=== PATIENT | female | born 1980 | race Caucasian/White ===

== ENCOUNTER → 2017-09-05 | Outpatient (CLI) | payer OTHER ==
[~2017-09-05] MED LIST: B-COMPLEX-VITA1 EACH PO; CEFTIN500 MG PO; CELEBREX200 MG; CELEBREX200 MG PO; CITALOPRAM HBR20 MG PO; COMPAZINE10 MG PO; DECADRON2 MG PO; DEXAMETHASONE1 MG PO; DILAUDID2 MG PO; GABAPENTIN300 MG PO; GABAPENTIN600 MG PO; NEURONTIN300 MG PO; OLANZAPINE5 MG PO; PEPCID20 MG PO; PHENERGAN25 MG PR; PROMETHAZINE HC25 M1 PO; PROZAC20 MG PO; TOPAMAX50 MG PO; ZANTAC300 MG PO; ZOFRAN4 MG PO; ZOFRAN8 MG PO; ZYRTEC10 M2 PO; ZYRTEC10 M3 PO
== END | disposition home or self-care (01) ==
LOC: PICC 14:00
DX: C50.912 Malignant neoplasm of unspecified site of left female breast (principal); Z88.1 Allergy status to other antibiotic agents; Z88.2 Allergy status to sulfonamides; Z88.8 Allergy status to other drugs, medicaments and biological substances; Z91.040 Latex allergy status
CPT/HCPCS: 76937

== ENCOUNTER 2017-09-10 20:20 | Inpatient (IN) | payer OTHER ==
[~2017-09-10] VITALS: Ht 170.2 cm; Wt 57.3 kg
[~2017-09-10 20:20] MED LIST changes: -B-COMPLEX-VITA1 EACH PO; -CEFTIN500 MG PO; -CELEBREX200 MG PO; -DECADRON2 MG PO; -DEXAMETHASONE1 MG PO; -OLANZAPINE5 MG PO; -ZOFRAN4 MG PO; -ZOFRAN8 MG PO
[2017-09-10 21:20] LABS: HEMATOCRIT 35.8 % (36.0-46.0); HEMOGLOBIN 11.8 G/DL (11.9-15.5); MCH 29.1 PG (29.0-34.0); MCV 88.4 FL (83-99); RBC DIS.WIDTH-CV 12.6 % (11.8-14.6); RBC DIS.WIDTH-SD 40.8 % (39-53); RED BLOOD COUNT 4.05 M/uL (3.80-5.20)
[2017-09-10 21:21] LABS: PLATELET COUNT 137 K/uL (156-360)
[2017-09-10 21:34] LABS: CHLORIDE 101 mEq/L (99-109); POTASSIUM 3.8 mEq/L (3.7-5.4); SODIUM 137 mEq/L (136-147)
[2017-09-10 21:36] LABS: GLUCOSE 106 mg/dL (70-99)
[2017-09-10 21:39] LABS: CREATININE 0.7 mg/dL (0.6-1.3); GFR ESTIMATE (CALCULATED) > 59 mL/min/
[2017-09-10 21:40] LABS: UREA NITROGEN (BUN) 17 mg/dL (9-23)
[2017-09-10 21:42] LABS: TROP-I INTERPRETATION NEGATIVE; TROPONIN-I < 0.01 ng/mL (0.0-0.30)
[2017-09-11] VITALS (7 sets, daily range): BP systolic 117–136; BP diastolic 69–97
[2017-09-11 01:48] LABS: APPEARANCE SL.HAZY ((CLEAR)); BILIRUBIN NEGATIVE; BLOOD SMALL; COLOR YELLOW ((YELLOW)); GLUCOSE (STRIP) NEGATIVE; KETONES 80; LEUKOCYTES SMALL; NITRITE POSITIVE; PROTEIN (STRIP) NEGATIVE; SPECIFIC GRAVITY 1.015 (1.000-1.030); UROBILINOGEN 0.2 MG/DL (0.2-1.0)
[2017-09-11 01:52] LABS: BACTERIA 3+ /HPF; EPITHELIAL CELLS 1+ /HPF; MUCUS 2+ /LPF; RED BLOOD CELLS 0-5 /HPF (0-5); UCUL ADDED? YES; WHITE BLOOD CELLS 30-40 /HPF (0-5)
[2017-09-11] MEDS ORDERED: CELEBREX200 MG PO (03:03)
[2017-09-11] MEDS ORDERED: TOPAMAX50 MG PO (03:04)
[2017-09-11] MEDS ORDERED: B-COMPLEX-VITA1 EACH PO (03:04)
[2017-09-11 06:51] LABS: HEMATOCRIT 31.2 % (36.0-46.0); HEMOGLOBIN 10.1 G/DL (11.9-15.5); MCH 28.7 PG (29.0-34.0); MCHC 32.4 G/DL (30.0-36.0); MCV 88.6 FL (83-99); PLATELET COUNT 104 K/uL (156-360); RBC DIS.WIDTH-CV 12.7 % (11.8-14.6); RBC DIS.WIDTH-SD 41.1 % (39-53); RED BLOOD COUNT 3.52 M/uL (3.80-5.20); WHITE BLOOD COUNT 15.6 K/uL (4.1-10.2)
[2017-09-11 08:49] LABS: CHLORIDE 106 MEQ/L (99-109); CREATININE 0.5 MG/DL (0.6-1.3); GFR ESTIMATE (CALCULATED) > 59 mL/min/; GLUCOSE 96 mg/dL (70-99); POTASSIUM 3.3 MEQ/L (3.7-5.4); SODIUM 140 MEQ/L (136-147); UREA NITROGEN (BUN) 14 mg/dL (9-23)
[2017-09-12 08:11] VITALS: BP 114/78
[2017-09-12 08:51] LABS: HEMATOCRIT 31.2 % (36.0-46.0); MCH 28.6 PG (29.0-34.0); MCHC 32.1 G/DL (30.0-36.0); MCV 89.1 FL (83-99); PLATELET COUNT 76 K/uL (156-360); RBC DIS.WIDTH-CV 12.5 % (11.8-14.6); RBC DIS.WIDTH-SD 41.1 % (39-53); WHITE BLOOD COUNT 4.9 K/uL (4.1-10.2)
[2017-09-12 09:20] LABS: CHLORIDE 109 MEQ/L (99-109); MAGNESIUM 1.8 mg/dl (1.3-2.7); POTASSIUM 3.6 MEQ/L (3.7-5.4); SODIUM 141 MEQ/L (136-147)
[2017-09-12 09:26] LABS: CREATININE 0.5 MG/DL (0.6-1.3); GFR ESTIMATE (CALCULATED) > 59 mL/min/; GLUCOSE 84 mg/dL (70-99); UREA NITROGEN (BUN) 10 mg/dL (9-23)
[2017-09-12 09:28] LABS: ABS NEUTROPHIL COUNT 4.3; BAND NEUTROPHILS 3.5 % (0-8.0); EOSINOPHIL ABS CT 0.1; EOSINOPHILS 1.8 % (0-5.0); LYMPHOCYTES 10.5 % (15.0-45.0); PLAT.SUFFICIENCY DECREASED; SEG.NEUTROPHILS 84.2 % (46.0-76.0)
[2017-09-12] MEDS ORDERED: COMPAZINE10 MG PO (10:16)
[2017-09-12] MEDS ORDERED: ZOFRAN8 MG PO (10:17)
[2017-09-12 12:05] VITALS: BP 154/81
[2017-09-12 12:12] VITALS: BP 105/52
[2017-09-12] MEDS ORDERED: ZOFRAN4 MG PO (12:29)
[2017-09-12 16:24] VITALS: BP 131/80
[2017-09-12 20:30] VITALS: BP 123/79
[2017-09-12 23:56] VITALS: BP 133/85
[2017-09-13 04:00] VITALS: BP 128/69
[2017-09-13 11:25] VITALS: BP 118/78
[2017-09-13 15:20] VITALS: BP 119/77
[2017-09-13] MEDS ORDERED: CEFTIN500 MG PO (15:31)
[2017-09-13] MEDS ORDERED: DEXAMETHASONE1 MG PO (15:34)
== END 2017-09-13 17:50 | disposition home health service (06) | DRG 391 ==
LOC: EME 20:20 → EDOF 09-11 02:39 → ENRESERV 09-11 02:40 → 5WEST 09-11 03:52 → CANRESERV 09-11 13:49 → 5WEST 09-11 13:49 → ENRESERV 09-11 13:49 → 5WEST 09-11 13:49
PROVIDERS: Emergency Medicine; Hospitalist; Internal Medicine; Student in an Organized Health Care Education/Training Program
DX: R11.2 Nausea with vomiting, unspecified (principal); K52.1 Toxic gastroenteritis and colitis; T45.1X5A Adverse effect of antineoplastic and immunosuppressive drugs, initial encounter; E86.0 Dehydration; E87.6 Hypokalemia; N39.0 Urinary tract infection, site not specified; C50.912 Malignant neoplasm of unspecified site of left female breast; D64.81 Anemia due to antineoplastic chemotherapy; D69.59 Other secondary thrombocytopenia; G93.5 Compression of brain; Q85.02 Neurofibromatosis, type 2; H91.90 Unspecified hearing loss, unspecified ear; D32.9 Benign neoplasm of meninges, unspecified; G51.0 Bell's palsy; G50.0 Trigeminal neuralgia; Z17.1 Estrogen receptor negative status [ER-]; Z68.1 Body mass index [BMI] 19.9 or less, adult; Z80.1 Family history of malignant neoplasm of trachea, bronchus and lung; Z80.3 Family history of malignant neoplasm of breast; Z87.442 Personal history of urinary calculi
CPT/HCPCS: 70553; 71046; 74176; 80048; 81003; 83605; 83735; 84484; 85025; 85027; 87040; 87077; 87086; 87186; 99281; 99284; J0696; J0780; J1100; J1650; J2060; J2405; J3010; J3480; J7030; J7040

== ENCOUNTER 2017-12-09 04:43 | Emergency (ER) | payer OTHER ==
[~2017-12-09] VITALS: Ht 167.6 cm; Wt 53.2 kg
[~2017-12-09 04:43] MED LIST changes: +B-COMPLEX-VITA1 EACH PO; +CEFTIN500 MG PO; +CELEBREX200 MG PO; +DECADRON2 MG PO; +DEXAMETHASONE1 MG PO; +OLANZAPINE5 MG PO; +ZOFRAN4 MG PO; +ZOFRAN8 MG PO
[2017-12-09 05:48] LABS: HEMATOCRIT 31.8 % (36.0-46.0); HEMOGLOBIN 10.4 G/DL (11.9-15.5); MCH 31.3 PG (29.0-34.0); MCHC 32.7 G/DL (30.0-36.0); MCV 95.8 FL (83-99); PLATELET COUNT 178 K/uL (156-360); RBC DIS.WIDTH-CV 14.9 % (11.8-14.6); RBC DIS.WIDTH-SD 52.8 % (39-53); RED BLOOD COUNT 3.32 M/uL (3.80-5.20); WHITE BLOOD COUNT 4.5 K/uL (4.1-10.2)
[2017-12-09 06:08] LABS: ALBUMIN 3.4 g/dL (3.2-4.8); CHLORIDE 111 mEq/L (99-109); POTASSIUM 3.6 mEq/L (3.7-5.4); SODIUM 144 mEq/L (136-147); TROP-I INTERPRETATION NEGATIVE
[2017-12-09 06:10] LABS: GLUCOSE 103 mg/dL (70-99); TOTAL PROTEIN 5.6 g/dL (6.4-8.3)
[2017-12-09 06:12] LABS: TOTAL BILIRUBIN 0.4 mg/dL (0.0-1.0)
[2017-12-09 06:14] LABS: ALKALINE PHOSPHATASE 45 IU/L (3-129); CREATININE 0.7 mg/dL (0.6-1.3); GFR ESTIMATE (CALCULATED) > 59 mL/min/
[2017-12-09 06:15] LABS: UREA NITROGEN (BUN) 12 mg/dL (9-23)
[2017-12-09 06:16] LABS: AST (GOT) 12 IU/L (2-34)
[2017-12-09 06:17] LABS: ALT (GPT) 19 IU/L (3-49)
[2017-12-09] MEDS ORDERED: KEFLEX500 MG PO (11:40)
[2017-12-09] MEDS ORDERED: CEPHALEXIN250 MG/5 M PO (12:22)
[2017-12-09 12:40] VITALS: BP 112/86
== END 2017-12-09 12:42 | disposition home or self-care (01) ==
LOC: EME → EDBD 04:43 → EME 12:42
PROVIDERS: Emergency Medicine
DX: R27.0 Ataxia, unspecified (principal); Q85.02 Neurofibromatosis, type 2; R55 Syncope and collapse; R53.1 Weakness; J32.0 Chronic maxillary sinusitis; R29.6 Repeated falls; Z87.442 Personal history of urinary calculi; Z85.3 Personal history of malignant neoplasm of breast; Z91.040 Latex allergy status
CPT/HCPCS: 70450; 70553; 71045; 80053; 84484; 85027; 93005; 99281; 99285; J2405; J7030

== ENCOUNTER 2017-12-24 02:57 | Observation (INO) | payer OTHER ==
[~2017-12-24] VITALS: Ht 170.2 cm; Wt 56.2 kg
[~2017-12-24 02:57] MED LIST changes: +B-121000 MC2 PO; -B-COMPLEX-VITA1 EACH PO; +CEPHALEXIN250 MG/5 M PO; +KEFLEX500 MG PO
[2017-12-24 03:57] LABS: BASOPHIL (%) 0.2 % (0-1); EOSINOPHIL (%) 0.7 % (0-5); HEMATOCRIT 29.4 % (36.0-46.0); IMMATURE GRANULOCYTE (%) 1.7 % (0.0-0.7); LYMPHOCYTE (%) 10.3 % (15-42); LYMPHOCYTE COUNT 0.4 K/uL (1.0-2.8); MCH 31.5 PG (29.0-34.0); MCV 95.5 FL (83-99); MONOCYTE (%) 5.9 % (3-12); MONOCYTE COUNT 0.2 K/uL (0-0.8); NEUTROPHIL (%) 81.2 % (45-76); NEUTROPHIL COUNT 3.3 K/uL (1.8-6.4); PLATELET COUNT 216 K/uL (156-360); RBC DIS.WIDTH-CV 13.4 % (11.8-14.6); RED BLOOD COUNT 3.08 M/uL (3.80-5.20); WHITE BLOOD COUNT 4.1 K/uL (4.1-10.2)
[2017-12-24 03:58] LABS: HEMOGLOBIN 9.7 G/DL (11.9-15.5)
[2017-12-24 04:07] LABS: ALBUMIN 3.3 g/dL (3.2-4.8)
[2017-12-24 04:08] LABS: CHLORIDE 103 mEq/L (99-109); POTASSIUM 3.6 mEq/L (3.7-5.4); SODIUM 138 mEq/L (136-147)
[2017-12-24 04:10] LABS: GLUCOSE 98 mg/dL (70-99); TOTAL PROTEIN 5.4 g/dL (6.4-8.3)
[2017-12-24 04:12] LABS: TOTAL BILIRUBIN 0.5 mg/dL (0.0-1.0)
[2017-12-24 04:13] LABS: ALKALINE PHOSPHATASE 43 IU/L (3-129)
[2017-12-24 04:14] LABS: CREATININE 0.7 mg/dL (0.6-1.3); GFR ESTIMATE (CALCULATED) > 59 mL/min/
[2017-12-24 04:15] LABS: AST (GOT) 11 IU/L (2-34); DIRECT BILIRUBIN 0.2 mg/dL (0.0-0.3); UREA NITROGEN (BUN) 9 mg/dL (9-23)
[2017-12-24 04:17] LABS: ALT (GPT) 16 IU/L (3-49); LIPASE 3 U/L (1.0-51.0)
[2017-12-24 05:35] LABS: APPEARANCE CLEAR ((CLEAR)); BILIRUBIN NEGATIVE; BLOOD NEGATIVE; COLOR STRAW ((YELLOW)); GLUCOSE (STRIP) NEGATIVE; KETONES NEGATIVE; LEUKOCYTES NEGATIVE; NITRITE NEGATIVE; PROTEIN (STRIP) NEGATIVE; SPECIFIC GRAVITY 1.005 (1.000-1.030); UROBILINOGEN 0.2 MG/DL (0.2-1.0)
[2017-12-24 10:43] VITALS: BP 134/88
[2017-12-24 19:13] VITALS: BP 109/56
[2017-12-25 00:16] VITALS: BP 103/57
[2017-12-25 04:00] VITALS: BP 102/62
[2017-12-25 05:32] LABS: HEMATOCRIT 31.1 % (36.0-46.0); HEMOGLOBIN 9.9 G/DL (11.9-15.5); MCH 30.7 PG (29.0-34.0); MCHC 31.8 G/DL (30.0-36.0); MCV 96.3 FL (83-99); PLATELET COUNT 216 K/uL (156-360); RBC DIS.WIDTH-CV 13.5 % (11.8-14.6); RBC DIS.WIDTH-SD 47.9 % (39-53); RED BLOOD COUNT 3.23 M/uL (3.80-5.20); WHITE BLOOD COUNT 4.4 K/uL (4.1-10.2)
[2017-12-25 06:20] LABS: CHLORIDE 111 MEQ/L (99-109); CREATININE 0.6 MG/DL (0.6-1.3); GFR ESTIMATE (CALCULATED) > 59 mL/min/; GLUCOSE 87 mg/dL (70-99); POTASSIUM 3.5 MEQ/L (3.7-5.4); UREA NITROGEN (BUN) 6 mg/dL (9-23)
[2017-12-25 06:25] LABS: SODIUM 146 MEQ/L (136-147)
[2017-12-25 07:58] VITALS: BP 111/76
[2017-12-25] MEDS ORDERED: ZOFRAN4 MG PO (10:02)
[2017-12-25 10:55] VITALS: BP 107/70
[2017-12-27 14:56] LABS: STOOL OCCULT BLD 1ST SPECIMEN NEGATIVE
== END 2017-12-25 12:25 | disposition home or self-care (01) ==
LOC: EME → EDBD 02:57 → EDOF 08:07 → ENRESERV 08:08 → 4SOUTH 10:14
PROVIDERS: Hospitalist; Physician Assistant
DX: R55 Syncope and collapse (principal); E87.6 Hypokalemia; R11.2 Nausea with vomiting, unspecified; R10.9 Unspecified abdominal pain; Q85.02 Neurofibromatosis, type 2; C50.912 Malignant neoplasm of unspecified site of left female breast; E86.0 Dehydration; Z91.19 Patient's noncompliance with other medical treatment and regimen; Z92.21 Personal history of antineoplastic chemotherapy; Z87.891 Personal history of nicotine dependence; Z80.3 Family history of malignant neoplasm of breast; Z80.1 Family history of malignant neoplasm of trachea, bronchus and lung; Z88.1 Allergy status to other antibiotic agents; Z88.2 Allergy status to sulfonamides; Z91.048 Other nonmedicinal substance allergy status; Z91.040 Latex allergy status
CPT/HCPCS: 80048; 80076; 81003; 82272; 83690; 85025; 85027; 93005; 99281; 99285; G0378; J1644; J2405; J7030; S0028

== ENCOUNTER 2018-01-20 11:53 | Emergency (ER) | payer OTHER ==
[~2018-01-20] VITALS: Ht 170.2 cm; Wt 55.5 kg
[2018-01-20 14:14] LABS: BASOPHIL (%) 0.4 % (0-1); EOSINOPHIL (%) 0.4 % (0-5); HEMATOCRIT 39.8 % (36.0-46.0); HEMOGLOBIN 12.8 G/DL (11.9-15.5); IMMATURE GRANULOCYTE (%) 0.7 % (0.0-0.7); LYMPHOCYTE (%) 8.4 % (15-42); LYMPHOCYTE COUNT 0.5 K/uL (1.0-2.8); MCH 30.6 PG (29.0-34.0); MCHC 32.2 G/DL (30.0-36.0); MCV 95.2 FL (83-99); MONOCYTE (%) 4.7 % (3-12); MONOCYTE COUNT 0.3 K/uL (0-0.8); NEUTROPHIL (%) 85.4 % (45-76); NEUTROPHIL COUNT 4.6 K/uL (1.8-6.4); PLATELET COUNT 260 K/uL (156-360); RED BLOOD COUNT 4.18 M/uL (3.80-5.20); WHITE BLOOD COUNT 5.4 K/uL (4.1-10.2)
[2018-01-20 14:22] LABS: ALBUMIN 3.8 g/dL (3.2-4.8); CHLORIDE 107 mEq/L (99-109); SODIUM 143 mEq/L (136-147)
[2018-01-20 14:24] LABS: GLUCOSE 90 mg/dL (70-99); TOTAL PROTEIN 6.6 g/dL (6.4-8.3)
[2018-01-20 14:26] LABS: TOTAL BILIRUBIN 0.4 mg/dL (0.0-1.0)
[2018-01-20 14:28] LABS: ALKALINE PHOSPHATASE 51 IU/L (3-129); CREATININE 0.8 mg/dL (0.6-1.3); GFR ESTIMATE (CALCULATED) > 59 mL/min/
[2018-01-20 14:29] LABS: UREA NITROGEN (BUN) 11 mg/dL (9-23)
[2018-01-20 14:30] LABS: AST (GOT) 15 IU/L (2-34)
[2018-01-20 14:31] LABS: ALT (GPT) 29 IU/L (3-49)
[2018-01-20 14:33] LABS: TROP-I INTERPRETATION NEGATIVE; TROPONIN-I 0.03 ng/mL (0.0-0.30)
[2018-01-20 19:27] VITALS: BP 138/101
== END 2018-01-20 19:28 | disposition home or self-care (01) ==
LOC: EME → EDBD 11:53 → EME 11:53
PROVIDERS: Emergency Medicine
DX: R55 Syncope and collapse (principal); E86.0 Dehydration; R42 Dizziness and giddiness; R51 Headache; R06.00 Dyspnea, unspecified; Q85.02 Neurofibromatosis, type 2; H54.62 Unqualified visual loss, left eye, normal vision right eye; H91.90 Unspecified hearing loss, unspecified ear; Z85.3 Personal history of malignant neoplasm of breast; Z92.21 Personal history of antineoplastic chemotherapy
CPT/HCPCS: 70450; 71045; 80053; 84484; 85025; 93005; 99281; 99285; J2405; J7040

== ENCOUNTER 2018-02-02 05:10 | Emergency (ER) | payer OTHER ==
[~2018-02-02] VITALS: Ht 172.7 cm; Wt 69.1 kg
[2018-02-02 07:03] LABS: BASOPHIL (%) 0.5 % (0-1); EOSINOPHIL (%) 0.6 % (0-5); HEMATOCRIT 38.6 % (36.0-46.0); HEMOGLOBIN 12.6 G/DL (11.9-15.5); IMMATURE GRANULOCYTE (%) 0.9 % (0.0-0.7); LYMPHOCYTE (%) 10.7 % (15-42); LYMPHOCYTE COUNT 0.7 K/uL (1.0-2.8); MCH 30.3 PG (29.0-34.0); MCHC 32.6 G/DL (30.0-36.0); MCV 92.8 FL (83-99); MONOCYTE (%) 7.6 % (3-12); MONOCYTE COUNT 0.5 K/uL (0-0.8); NEUTROPHIL (%) 79.7 % (45-76); NEUTROPHIL COUNT 5.1 K/uL (1.8-6.4); PLATELET COUNT 229 K/uL (156-360); RBC DIS.WIDTH-SD 44.3 % (39-53); RED BLOOD COUNT 4.16 M/uL (3.80-5.20); WHITE BLOOD COUNT 6.4 K/uL (4.1-10.2)
[2018-02-02 07:49] LABS: ALBUMIN 3.6 G/DL (3.2-4.8); CHLORIDE 105 MEQ/L (99-109); POTASSIUM 3.5 MEQ/L (3.7-5.4); SODIUM 142 MEQ/L (136-147); TOTAL BILIRUBIN 0.3 MG/DL (0.0-1.0)
[2018-02-02 07:55] LABS: ALKALINE PHOSPHATASE 45 IU/L (3-129); ALT (GPT) 12 IU/L (3-49); AST (GOT) 11 IU/L (2-34); CREATININE 0.7 MG/DL (0.6-1.3); GFR ESTIMATE (CALCULATED) > 59 mL/min/; GLUCOSE 100 mg/dL (70-99); TOTAL PROTEIN 6.4 G/DL (6.4-8.3); UREA NITROGEN (BUN) 12 mg/dL (9-23)
[2018-02-02 09:40] VITALS: BP 128/95
== END 2018-02-02 09:55 | disposition home or self-care (01) ==
LOC: EME → EDBD 05:10 → EME 09:55
PROVIDERS: Emergency Medicine
DX: E86.0 Dehydration (principal); C50.911 Malignant neoplasm of unspecified site of right female breast; Q85.00 Neurofibromatosis, unspecified; Z92.21 Personal history of antineoplastic chemotherapy; Z87.442 Personal history of urinary calculi; Z91.040 Latex allergy status
CPT/HCPCS: 71045; 80053; 85025; J7030

== ENCOUNTER 2018-02-09 00:50 | Emergency (ER) | payer OTHER ==
[~2018-02-09] VITALS: Ht 167.6 cm; Wt 54.4 kg
[~2018-02-09 00:50] MED LIST changes: -B-121000 MC2 PO; +B-12500 MC1 SL
[2018-02-09 02:30] LABS: BASOPHIL (%) 0.2 % (0-1); EOSINOPHIL (%) 0.3 % (0-5); EOSINOPHIL COUNT 0.1 K/uL (0-0.3); HEMOGLOBIN 12.6 G/DL (11.9-15.5); IMMATURE GRANULOCYTE (%) 0.7 % (0.0-0.7); LYMPHOCYTE (%) 4.8 % (15-42); LYMPHOCYTE COUNT 0.7 K/uL (1.0-2.8); MCH 30.8 PG (29.0-34.0); MCHC 34.1 G/DL (30.0-36.0); MCV 90.5 FL (83-99); MONOCYTE (%) 7.6 % (3-12); MONOCYTE COUNT 1.2 K/uL (0-0.8); NEUTROPHIL (%) 86.4 % (45-76); NEUTROPHIL COUNT 13.2 K/uL (1.8-6.4); PLATELET COUNT 228 K/uL (156-360); RBC DIS.WIDTH-CV 12.8 % (11.8-14.6); RBC DIS.WIDTH-SD 42.7 % (39-53); RED BLOOD COUNT 4.09 M/uL (3.80-5.20); WHITE BLOOD COUNT 15.2 K/uL (4.1-10.2)
[2018-02-09 02:38] LABS: CHLORIDE 100 mEq/L (99-109); POTASSIUM 3.7 mEq/L (3.7-5.4); SODIUM 139 mEq/L (136-147)
[2018-02-09 02:40] LABS: GLUCOSE 114 mg/dL (70-99)
[2018-02-09 02:44] LABS: CREATININE 0.8 mg/dL (0.6-1.3); GFR ESTIMATE (CALCULATED) > 59 mL/min/
[2018-02-09 02:45] LABS: UREA NITROGEN (BUN) 15 mg/dL (9-23)
[2018-02-09 02:52] LABS: TROP-I INTERPRETATION NEGATIVE; TROPONIN-I < 0.01 ng/mL (0.0-0.30)
[2018-02-09 04:57] LABS: APPEARANCE CLEAR ((CLEAR)); BILIRUBIN NEGATIVE; BLOOD NEGATIVE; COLOR STRAW ((YELLOW)); GLUCOSE (STRIP) NEGATIVE; KETONES NEGATIVE; LEUKOCYTES NEGATIVE; NITRITE NEGATIVE; PROTEIN (STRIP) NEGATIVE; SPECIFIC GRAVITY 1.011 (1.000-1.030); UCUL ADDED? NO; UROBILINOGEN 0.2 MG/DL (0.2-1.0)
[2018-02-09] MEDS ORDERED: DECADRON2 MG PO (08:29)
[2018-02-09 15:00] VITALS: BP 100/83
== END 2018-02-09 15:03 | disposition short-term general hospital (02) ==
LOC: EME → EDBD 00:50 → EME 08:32 → EDOF 08:32 → ENRESERV 08:33 → CANRESERV 08:53 → EDOF 15:03 → EME 15:03
PROVIDERS: Emergency Medicine
DX: Q85.02 Neurofibromatosis, type 2 (principal); E86.0 Dehydration; D37.05 Neoplasm of uncertain behavior of pharynx; I87.1 Compression of vein; R55 Syncope and collapse; Z85.3 Personal history of malignant neoplasm of breast; Z92.21 Personal history of antineoplastic chemotherapy; H54.10 Blindness, one eye, low vision other eye, unspecified eyes; H91.90 Unspecified hearing loss, unspecified ear; Z80.1 Family history of malignant neoplasm of trachea, bronchus and lung; Z87.442 Personal history of urinary calculi; Z87.891 Personal history of nicotine dependence
CPT/HCPCS: 70450; 70491; 71045; 80048; 81003; 84484; 85025; 87502; 93005; 95819; G0378; J7030